=== PATIENT | male | born 1985 | race Caucasian/White ===

== ENCOUNTER 2017-06-02 10:15 | Emergency (ER) | payer BC, MEDICAID, OTHER ==
[2017-06-02 10:43] VITALS: BP 121/75
[2017-06-02 10:58] LABS: CHLORIDE,CL 105 mEq/L (98-106); SODIUM,NA 141 mEq/L (136-145)
[2017-06-02] MEDS ORDERED: Sodium Chloride 0.9% 1,000 ML IV ONE (11:12)
--- NOTE | 2017-06-02 11:39 | EDM.PDOC ---
ED HPI GENERAL MEDICAL PROBLEM - General Chief Complaint: General Stated Complaint: DIZZY Time Seen by Provider: 06/02/17 10:35 Source of Information: Reports: Patient History Limitations: Reports: No Limitations - History of Present Illness INITIAL COMMENTS - FREE TEXT/NARRATIVE: Patient presents to ER after feeling lightheaded. 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 Has had these sharp pains off and on this am and they last for a few seconds at a time. He states he felt like he was in a fog and wasn't going to be able to complete his load. Got off and "feels like I am outside my body". Denies any head trauma. Has had sinus congestion/ cold symptoms now for several days. Has been taking Nyquil and does admit to taking that today before going to work. States has taken it during the day before and hasn't gotten "foggy" with it. He denies any headache at present. No recent fevers. Did eat breakfast today before going to work. Onset: Today Duration: Hour(s): Location: Reports: Head Improves with: Reports: Rest Associated Symptoms: Reports: Chest Pain, Headaches, Malaise, Weakness. 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 Headache Pain Score (Numeric/FACES): 8 - Related Data Allergies Allergy/AdvReac Type Severity Reaction Status Date / Time amoxicillin Allergy Hives Verified 06/02/17 10:21 Home Meds: Home Meds . [No Known Home Meds] 06/02/17 [History] Past Medical History HEENT History: Reports: Impaired Vision, Other (See Below) Other HEENT History: wears glasses Musculoskeletal History: Reports: Other (See Below) Other Musculoskeletal History: previous work related R knee injury w/ multiple surgeries - Past Surgical History GI Surgical History: Reports: Appendectomy, Cholecystectomy Musculoskeletal Surgical History: Reports: Arthroscopic Knee Social & Family History - Family History Family Medical History: Noncontributory Cardiac: Reports: CAD, Hypertension Endocrine/Metabolic: Reports: Diabetes, type II - Tobacco Use Smoking Status *Q: Never Smoker Second Hand Smoke Exposure: No - Recreational Drug Use Recreational Drug Use: No - Living Situation & Occupation Living situation: Reports: with Family ED ROS GENERAL - Review of Systems Review Of Systems: See Below Constitutional: Reports: Chills, Malaise, Weakness, Fatigue. Denies: Fever, Diaphoresis HEENT: Reports: Rhinitis, Sinus Problem. Denies: Ear Pain, Throat Pain Respiratory: Reports: Shortness of Breath. Denies: Cough Cardiovascular: Reports: Chest Pain, Lightheadedness Endocrine: Reports: Fatigue GI/Abdominal: Denies: Abdominal Pain, Nausea, Vomiting : Reports: No Symptoms Musculoskeletal: Reports: No Symptoms Skin: Reports: No Symptoms Neurological: Reports: Confusion, Headache, Weakness Psychiatric: Reports: No Symptoms ED EXAM, GENERAL - Physical Exam Exam: See Below Exam Limited By: No Limitations General Appearance: Alert, WD/WN, No Apparent Distress Eye Exam: Bilateral Eye: Abnormal EOM, PERRL Ears: Normal External Exam, Normal TMs Nose: Normal Inspection, Nasal Drainage Throat/Mouth: Normal Inspection, Normal Oropharynx Head: Normocephalic Neck: Normal Inspection, Supple, Non-Tender Respiratory/Chest: No Respiratory Distress, Lungs Clear, Normal Breath Sounds Cardiovascular: Regular Rate, Rhythm, No Edema GI/Abdominal: Normal Bowel Sounds, Soft, Non-Tender Extremities: Normal Inspection Neurological: Alert, Oriented, CN II-XII Intact, No Motor/Sensory Deficits Skin Exam: Warm, Dry Course - Vital Signs Last Recorded V/S: Last Vital Signs Temp 98.6 F 06/02/17 10:27 Pulse 71 06/02/17 10:27 Resp 18 06/02/17 10:27 BP 121/75 06/02/17 10:27 Pulse Ox 95 06/02/17 10:27 - Orders/Labs/Meds Labs: Laboratory Tests 06/02/17 06/02/17 06/02/17 Range/Units 10:25 10:25 10:25 WBC 9.1 (5.0-10.0) 10^3/uL RBC 4.91 (4.50-6.00) 10^6/uL Hgb 15.3 (14.0-18.0) g/dL Hct 45.2 (40.0-54.0) % MCV 92.1 (82.0-94.0) fL MCH 31.2 (27.0-32.0) pg MCHC 33.8 (33.0-38.0) g/dL RDW Coeff of Marilu 12.5 (11.0-15.0) % Plt Count 187 (150-400) 10^3/uL Neut % (Auto) 65.3 (35-85) % Lymph % (Auto) 20.3 (10-55) % Leslie % (Auto) 9.3 (0-16) % Eos % (Auto) 4.9 (0-5) % Baso % (Auto) 0.2 (0-3) % Neut # (Auto) 5.91 (1.80-7.00) 10^3/uL Lymph # (Auto) 1.84 (1.00-4.80) 10^3/uL Leslie # (Auto) 0.84 H (0.00-0.80) 10^3/uL Eos # (Auto) 0.44 (0.00-0.45) 10^3/uL Baso # (Auto) 0.02 10^3/uL PT 12.0 (9.7-12.3) SEC INR 1.11 (0.92-1.18) APTT 28.2 (24.5-30.9) SEC D-Dimer, Quantitative < 0.19 (0.00-0.50) Sodium 141 (136-145) mEq/L Potassium 3.9 D (3.5-5.0) mEq/L Chloride 105 (98-106) mEq/L Carbon Dioxide 29 (21-32) mmol/L BUN 17 (7-18) mg/dL Creatinine 0.9 (0.7-1.3) mg/dL Est Cr Clr Drug Dosing 139.54 mL/min Estimated GFR (MDRD) > 60 (>=60) mL/min Glucose 100 H (75-99) mg/dL Calcium 9.0 (8.4-10.1) mg/dL Lactate Dehydrogenase 163 (100-190) U/L Creatine Kinase 111 (35-232) U/L Troponin I < 0.017 (0.00-0.06) ng/mL Meds: Medications Discontinued Medications Generic Name Dose Route Start Last Admin Trade Name Freq PRN Reason Stop Dose Admin Sodium Chloride 1,000 mls @ 999 mls/hr 06/02/17 11:12 06/02/17 11:18 Normal Saline IV 06/02/17 12:12 999 mls/hr .BOLUS ONE Administration - Re-Assessments/Exams Free Text/Narrative Re-Assessment/Exam: 06/02/2017 Lab, chest xray, EKG and CT scan all normal. Discussed with patient and mother. Most likely what patient is experiencing is from taking Nyquil and then going to work, having a sinus infection and possible chest wall inflammation. Will treat accordingly and have patient rest through the day and follow up if has ongoing symptoms Departure - Departure Time of Disposition: 11:37 Disposition: Home, Self-Care 01 Clinical Impression: Medication reaction, Sinusitis, Chest wall pain - Discharge Information Referrals: Walter Boland MD [Primary Care Provider] - Forms: ED Department Discharge Additional Instructions: 1. Rest 2. Push fluids 3. Zpack as directed 4. Avoid Nyquil during the day 5. Meloxicam 15 mg daily for 10 days for chest wall discomfort 6. Follow up if any ongoing concerns.
== END 2017-06-02 12:20 | disposition home or self-care (01) ==
LOC: CC.ED 10:15
DX: R07.89 Other chest pain (principal); T50.995A Adverse effect of other drugs, medicaments and biological substances, initial encounter; J32.9 Chronic sinusitis, unspecified; Z88.1 Allergy status to other antibiotic agents
CPT/HCPCS: 36415; 70450; 71020; 80048; 82550; 83615; 84484; 85025; 85379; 85610; 85730; 93005; 96360; 99284; J7030

== ENCOUNTER 2017-07-14 18:02 | Emergency (ER) | payer MEDICAID ==
[2017-07-14 18:09] VITALS: BP 155/86
[2017-07-14] MEDS ORDERED: Oseltamivir 75 MG Cap PO ONE (18:45)
--- NOTE | 2017-07-14 18:45 | EDM.PDOC ---
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 Started noting symptoms yesterday. Has mild sinus congestion, drainage. Minimal appetite but is pushing fluids. Has been taking tylenol and ibuprofen for fever and discomfort but continues to spike fevers up to as high as 104. Children have been recently ill as well. Denies shortness of breath or wheezing. Onset: Gradual Duration: Day(s): Location: Reports: Generalized Quality: Reports: Throbbing Severity: Moderate Improves with: Reports: Medication, Rest Associated Symptoms: Reports: Cough, Fever/Chills, Headaches, Loss of Appetite, Malaise, Weakness. 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 Headache Pain Score (Numeric/FACES): 10 - Related Data Allergies Allergy/AdvReac Type Severity Reaction Status Date / Time amoxicillin Allergy Hives Verified 07/14/17 18:09 Home Meds: Home Meds Acetaminophen [Tylenol] 650 mg PO Q6H PRN 07/14/17 [History] Ibuprofen [Motrin] 800 mg PO Q6H PRN 07/14/17 [History] Past Medical History HEENT History: Reports: Impaired Vision, Other (See Below) Other HEENT History: wears glasses Musculoskeletal History: Reports: Other (See Below) Other Musculoskeletal History: previous work related R knee injury w/ multiple surgeries - Past Surgical History GI Surgical History: Reports: Appendectomy, Cholecystectomy Musculoskeletal Surgical History: Reports: Arthroscopic Knee Social & Family History - Family History Family Medical History: Noncontributory Cardiac: Reports: CAD, Hypertension Endocrine/Metabolic: Reports: Diabetes, type II - Tobacco Use Smoking Status *Q: Never Smoker Second Hand Smoke Exposure: No - Caffeine Use Caffeine Use: Reports: None - Recreational Drug Use Recreational Drug Use: No - Living Situation & Occupation Living situation: Reports: with Family ED ROS GENERAL - Review of Systems Review Of Systems: See Below Constitutional: Reports: Fever, Chills, Malaise, Weakness, Fatigue, Decreased Appetite HEENT: Reports: Rhinitis, Throat Pain. Denies: Ear Pain Respiratory: Reports: Cough. Denies: Shortness of Breath, Wheezing, Sputum Cardiovascular: Denies: Chest Pain, Edema, Lightheadedness Endocrine: Reports: Fatigue GI/Abdominal: Denies: Abdominal Pain, Nausea, Vomiting : Reports: No Symptoms Musculoskeletal: Reports: No Symptoms Skin: Reports: No Symptoms Neurological: Reports: No Symptoms ED EXAM, GENERAL - Physical Exam Exam: See Below Exam Limited By: No Limitations General Appearance: Alert, WD/WN, Mild Distress Ears: Normal External Exam, Normal TMs Nose: Normal Inspection, Normal Mucosa, Nasal Drainage Throat/Mouth: Normal Inspection, Normal Oropharynx Head: Normocephalic Neck: Normal Inspection, Supple, Non-Tender Respiratory/Chest: No Respiratory Distress, Lungs Clear, Normal Breath Sounds Cardiovascular: Regular Rate, Rhythm GI/Abdominal: Normal Bowel Sounds, Soft, Non-Tender Course - Vital Signs Last Recorded V/S: Last Vital Signs Temp 102.0 F H 07/14/17 18:05 Pulse 128 H 07/14/17 18:05 Resp 20 07/14/17 18:05 BP 155/86 H 07/14/17 18:05 Pulse Ox 96 07/14/17 18:05 - Orders/Labs/Meds Meds: Medications Discontinued Medications Generic Name Dose Route Start Last Admin Trade Name Jaleelq PRN Reason Stop Dose Admin Oseltamivir Phosphate 75 mg 07/14/17 18:45 Tamiflu PO 07/14/17 18:46 ONETIME ONE - Re-Assessments/Exams Free Text/Narrative Re-Assessment/Exam: 07/14/17 Influenza A positive Departure - Departure Time of Disposition: 18:43 Disposition: Home, Self-Care 01 Condition: Fair Clinical Impression: Influenza A - Discharge Information Forms: ED Department Discharge Additional Instructions: 1. Push fluids 2. Alternate tylenol and ibuprofen every 3 hours for fever or discomfort 3. Tamiflu 75 mg twice a day for 5 days 4. Contact us if any concerns or questions
== END 2017-07-14 18:53 | disposition home or self-care (01) ==
LOC: CC.ED 18:02
DX: J10.1 Influenza due to other identified influenza virus with other respiratory manifestations (principal); Z88.1 Allergy status to other antibiotic agents
CPT/HCPCS: 87804; 99283; A9270